=== PATIENT | male | born 1960 | race Caucasian/White ===

== ENCOUNTER 2022-04-11 16:00 | Emergency (ER) | payer OTHER ==
[~2022-04-11] VITALS: Ht 182.9 cm; Wt 107.5 kg
[2022-04-11] MEDS ORDERED: TDAP DIPH,PERTUSS,TET VAC/PF 0.5 ML DISP.SYRIN IM ONE ×2 (16:30→16:40)
[2022-04-11] MEDS ORDERED: BACITRACIN ZINC OINT 15 GM TUBE ONE (17:28)
--- NOTE | 2022-04-11 18:00 | NUR ---
Patient discharged to home in stable condition. Written and verbal after care instructions given. Patient verbalizes understanding of instructions. Stressed follow up or return to ER for worsening s/s.
--- NOTE | 2022-04-11 18:00 | NUR ---
Patient presents to the ER, S/P fall at home while installing [place] lights. Patient C/O (LT) wrist/hand/elbow pain and swelling. Patient wrist appears to be out of alignment, with limited ROM and painful with movement. Patient A/O X 4, seen by the MD, X-Ray ordered and completed at the bedside. Patient medicated as per MD orders (see eMAR). Patient's fingers immobilized using a volar/Colles' splint. Left wrist/forearm Volar splint with shoulder sling in place. Patient seen and cleared for discharge home, discharge instructions provided with Ortho follow-up referral. Patient is stable, left ambulatory.
== END 2022-04-11 18:53 | disposition home or self-care (01) ==
LOC: ER 16:00
DX: S52.502A Unspecified fracture of the lower end of left radius, initial encounter for closed fracture (principal); S52.612A Displaced fracture of left ulna styloid process, initial encounter for closed fracture; S50.312A Abrasion of left elbow, initial encounter; W11.XXXA Fall on and from ladder, initial encounter; Y93.89 Activity, other specified; Y92.018 Other place in single-family (private) house as the place of occurrence of the external cause; E11.9 Type 2 diabetes mellitus without complications
CPT/HCPCS: 73080; 73110; 90715; A4663